=== PATIENT | female | born 1970 | race African-American/Black ===

== ENCOUNTER 2022-07-19 20:43 | Emergency (ER) | payer OTHER ==
[~2022-07-19] VITALS: Ht 157.5 cm; Wt 78.2 kg
[2022-07-19 21:18] LABS: BASO % 0.5 % (0.0-2.0); EOS # 0.2 K/mm3 (0.0-0.7); EOS % 3.1 % (0.0-4.0); GRAN # 2.4 K/mm3 (1.4-6.5); GRAN % 41.3 % (42.2-75.2); HEMATOCRIT 41.9 % (37.0-47.0); HEMOGLOBIN 13.8 g/dl (12.5-16.0); LYMPH # 2.8 K/mm3 (1.2-3.4); LYMPH % 47.4 % (20.0-51.0); MEAN CELL VOLUME 90 fl (80.0-100.0); MEAN CORPUSCULAR HEMOGLOBIN 30 pg (27-31); MEAN CORPUSCULAR HGB CONC 33 g/dl (33.0-37.0); MEAN PLATELET VOLUME 10.3 fl (7.4-10.4); MONO # 0.4 K/mm3 (0.1-0.6); PLATELET COUNT 201 K/mm3 (130-400); RED BLOOD COUNT 4.66 M/mm3 (4.10-5.30); REDCELL DISTRIBUTION WIDTH-CV 13.7 % (11.5-14.5)
[2022-07-19] MEDS ORDERED: SINGULAIR 110 MG/TAB PO (21:25)
[2022-07-19] MEDS ORDERED: HCTZ 25MG TAB25 MG PO (21:25)
[2022-07-19] MEDS ORDERED: CLARITIN 1010 MG/TAB PO (21:25)
[2022-07-19] MEDS ORDERED: PROVIGIL200 MG PO (21:25)
[2022-07-19 21:36] LABS: ALBUMIN 3.6 gm/dL (3.5-5.0); BILIRUBIN,TOTAL 0.5 mg/dL (0.2-1.2); C-REACTIVE PROTEIN 1.05 mg/dL (0.00-0.50); CALCIUM 8.7 mg/dL (8.4-10.2); CREATININE, serum 0.72 mg/dL (0.57-1.11); POTASSIUM 3.9 mmol/L (3.5-4.5)
[2022-07-19 21:50] VITALS: BP 149/91; PULSE 101
== END 2022-07-19 21:50 | disposition home or self-care (01) ==
LOC: COL.ER 20:43
PROVIDERS: Family Medicine
DX: U07.1 COVID-19 (principal); F17.210 Nicotine dependence, cigarettes, uncomplicated
CPT/HCPCS: J0780; J1885

== ENCOUNTER 2022-07-25 16:31 | Emergency (ER) | payer OTHER ==
[~2022-07-25 16:31] MED LIST: CLARITIN 1010 MG/TAB PO; HCTZ 25MG TAB25 MG PO; PROVIGIL200 MG PO; SINGULAIR 110 MG/TAB PO
[2022-07-25 16:43] VITALS: TEMP 98.4
[2022-07-25 17:17] VITALS: BP 130/84; PULSE 93
== END 2022-07-25 17:17 | disposition home or self-care (01) ==
LOC: COL.ER 16:31
DX: U07.1 COVID-19 (principal)